=== PATIENT | female | born 1960 | race African-American/Black ===

== ENCOUNTER 2017-12-21 20:43 | Observation (INO) ==
[2017-12-21 23:41] LABS: Basophils % 0.3 % (0.0-0.8); Eosinophils # 0.1 10*3/uL (0.0-0.87); Eosinophils % 1.2 % (0.00-10.9); Hematocrit 35.2 VOL% (35.7-47.0); Hemoglobin 11.5 GM/DL (12.0-16.0); Immature Granulocytes % 0.1 %; Immature Granulocytes Absolute 0.01 #; Lymphocytes # 2.8 10*3/uL (1.4-4.0); Lymphocytes % 38.1 % (21.3-54.2); Mean Corpuscular HGB Conc 32.7 GM/DL (32-36); Mean Corpuscular Hemoglobin 30 PG (27-34); Mean Corpuscular Volume 90.3 FL (87-102); Mean Platelet Volume 11.3 FL (9.6-12.0); Monocytes # 0.5 10*3/uL (0.11-0.8); Monocytes % 6.8 % (1.7-12.7); Neutrophils # 3.9 10*3/uL (1.4-7.4); Neutrophils % 53.5 % (38.7-73.9); Platelet Count 211 T/CUMM (130-400); Red Cell Distribution Width 13.6 % (9.3-17.3); White Blood Count 7.2 T/CUMM (4-12)
[2017-12-21 23:56] LABS: PT Patient Result 10.5 SECS; Partial Thromboplastin Time 27.8 SECS (0-40)
[2017-12-22 00:03] LABS: Alanine Aminotransferase 22 U/L (13-56); Albumin 3.6 G/DL (3.4-5.0); Alkaline Phosphatase 84 U/L (45-117); Aspartate Amino Transferase 33 U/L (0-37); Blood Urea Nitrogen 15 MG/DL (7-18); Calcium 9.6 MG/DL (8.5-10.1); Glucose 120 MG/DL (74-106); Potassium 4.9 MMOL/L (3.5-5.1); Sodium 136 MMOL/L (136-145); Troponin I Only < 0.015 NG/ML (0.00-0.045)
[2017-12-22 00:03] LABS: Apearance,Urine CLOUDY (Clear); Bacteria,Urine Many /HPF (Few); Bilirubin,Urine Negative (Negative); Blood, Urine Large mg/dL (Negative); Glucose,Urine (UA) Negative (Negative); Ketones,Urine Negative (Negative); Nitrite,Urine Negative (Negative); Protein,Urine 100 MG/DL; RBC,Urine 2210 /HPF (0-4); Urine Color Red (Yellow); Urine Specific Gravity 1.014 (1.001-1.035); Urine Urobilinogen < 2.0 EU/DL (0.2-1.0); WBC,Urine 286 /HPF (0-6)
[2017-12-22] MEDS ORDERED: CIPROFLOXACIN INJ 400 MG in PREMIX 1 EACH IV STA (03:26)
[2017-12-22] MEDS ORDERED: MAGNESIUM SULF RIDER 2 GM in PREMIX 1 EACH IV PRN (03:26)
[2017-12-22] MEDS ORDERED: MAGNESIUM SULF RIDER 4 GM in PREMIX 1 EACH IV PRN (03:26)
[2017-12-22 05:56] LABS: Troponin I Only < 0.015 NG/ML (0.00-0.045)
[2017-12-22 08:15] LABS: Troponin I Only < 0.015 NG/ML (0.00-0.045)
[2017-12-22] MEDS ORDERED: DEXTROSE 50% 25 GM/50 ML VIAL IV PRN (08:53)
[2017-12-22] MEDS ORDERED: GLUCAGON 1 MG VIAL IM PRN (08:53)
[2017-12-22] MEDS ORDERED: CARVEDILOL 25 MG TABLET PO SCH (09:00)
[2017-12-22] MEDS ORDERED: CARVEDILOL 12.5 MG TABLET PO SCH (09:00)
[2017-12-22] MEDS ORDERED: FUROSEMIDE 20 MG TABLET PO SCH (09:00)
[2017-12-22] MEDS ORDERED: SOTALOL 80 MG TABLET PO ONE (10:32)
[2017-12-22] MEDS: PANTOPRAZOLE 40 MG TABLET PO SCH (10:34)
[2017-12-22] MEDS: DILTIAZEM CD 120 MG CAPSULE PO SCH (10:34)
[2017-12-22] MEDS: SPIRONOLACTONE 25 MG TABLET PO SCH (10:34)
[2017-12-22] MEDS: ASPIRIN EC 81 MG TABLET PO SCH (10:34)
[2017-12-22] MEDS: MAGNESIUM OXIDE 400 MG TABLET PO SCH ×2 (10:35→21:03)
[2017-12-22] MEDS: ENALAPRIL 10 MG TABLET PO SCH ×2 (10:35→21:03)
[2017-12-22 10:44] LABS: Calcium 9.2 MG/DL (8.5-10.1); Osmolality,Calculated 277.7 MOS/KG (273-304); Potassium 4.3 MMOL/L (3.5-5.1)
[2017-12-22 10:50] LABS: Troponin I Only < 0.015 NG/ML (0.00-0.045)
[2017-12-22] MEDS: INSULIN REGULAR 100 UNIT/ML SUBCUT SCH ×3 (14:12→21:14)
[2017-12-22] MEDS ORDERED: diphenhydrAMINE CAP 25 MG CAPSULE PO PRN (18:06)
[2017-12-22] MEDS ORDERED: MAGNESIUM HYDROXIDE SUSP 30 ML UDCUP PO PRN (18:06)
[2017-12-22] MEDS ORDERED: ONDANSETRON 4 MG/2 ML VIAL IV PRN (18:06)
[2017-12-22] MEDS: SOTALOL 80 MG TABLET PO SCH (21:03)
[2017-12-23 06:19] LABS: Calcium 8.9 MG/DL (8.5-10.1); Osmolality,Calculated 281.5 MOS/KG (273-304); Potassium 4.4 MMOL/L (3.5-5.1)
[2017-12-23] MEDS: DILTIAZEM CD 120 MG CAPSULE PO SCH (08:16)
[2017-12-23] MEDS: INSULIN REGULAR 100 UNIT/ML SUBCUT SCH ×2 (08:16→11:50)
[2017-12-23] MEDS: SPIRONOLACTONE 25 MG TABLET PO SCH (08:17)
[2017-12-23] MEDS: PANTOPRAZOLE 40 MG TABLET PO SCH (08:17)
[2017-12-23] MEDS: SOTALOL 80 MG TABLET PO SCH (08:17)
[2017-12-23] MEDS: ASPIRIN EC 81 MG TABLET PO SCH (08:17)
[2017-12-23] MEDS: ENALAPRIL 10 MG TABLET PO SCH (08:17)
[2017-12-23] MEDS: MAGNESIUM OXIDE 400 MG TABLET PO SCH (08:17)
[2017-12-23] MEDS ORDERED: SOTALOL 80 MG TABLET PO SCH ×3 (10:50→21:00)
[2017-12-23 11:58] VITALS: BP 96/53
[2017-12-23] MEDS ORDERED: FUROSEMIDE 20 MG/2 ML VIAL IV ONE (13:47)
[2017-12-23] MEDS ORDERED: INSULIN LISPRO 100 UNIT/ML SUBCUT SCH (15:00)
[2017-12-23] MEDS ORDERED: sitaGLIPtin 25 MG TABLET PO SCH (21:00)
[2017-12-23] MEDS ORDERED: INSULIN GLARGINE 100 UNIT/ML SUBCUT SCH ×2 (21:00)
[2017-12-23] MEDS ORDERED: metFORMIN 500 MG TABLET PO SCH (21:00)
[2017-12-24] MEDS ORDERED: PANTOPRAZOLE 40 MG TABLET PO SCH (09:00)
== END 2017-12-23 15:12 | disposition home or self-care (01) ==
LOC: N.EDINP 20:43 → N.ED 20:43 → N.TELES 12-22 03:03
PROVIDERS: ADMIT Internal Medicine Cardiovascular Disease; ATTEND Internal Medicine Cardiovascular Disease

== ENCOUNTER 2019-10-30 12:37 | Inpatient (IN) ==
[2019-10-30 13:32] LABS: Basophils % 0.6 % (0.0-0.8); Hemoglobin 9.9 GM/DL (12.0-16.0); Platelet Count 246 T/CUMM (130-400); Red Cell Distribution Width 17.2 % (9.3-17.3)
[2019-10-30 13:51] LABS: Eosinophils # 0.1 10*3/uL (0.0-0.87); Eosinophils % 2.3 % (0.00-10.9); Hematocrit 33.6 VOL% (35.7-47.0); Immature Granulocytes % 0.4 %; Immature Granulocytes Absolute 0.02 #; Lymphocytes # 1.5 10*3/uL (1.4-4.0); Lymphocytes % 31.9 % (21.3-54.2); Mean Corpuscular HGB Conc 29.5 GM/DL (32-36); Mean Corpuscular Volume 82.6 FL (87-102); Mean Platelet Volume 10.6 FL (9.6-12.0); Monocytes % 8.8 % (1.7-12.7); Red Blood Count 4.07 MC/CUMM (3.8-5.5); White Blood Count 4.8 T/CUMM (4-12)
[2019-10-30 13:52] LABS: Albumin 3.3 G/DL (3.4-5.0); Bilirubin,Total 0.5 MG/DL (0.2-1.0); Calcium 9.4 MG/DL (8.5-10.1); Total Protein 8.4 G/DL (6.4-8.3)
[2019-10-30 14:12] LABS: Apearance,Urine CLEAR (Clear); Bacteria,Urine Moderate /HPF (Few); Bilirubin,Urine Negative (Negative); Blood, Urine Negative (Negative); Glucose,Urine (UA) Negative (Negative); Ketones,Urine Negative (Negative); Nitrite,Urine Negative (Negative); Protein,Urine 30 MG/DL; RBC,Urine 1 /HPF (0-4); Squamous Epithelial Cell,Urine Occasional /HPF (0-10); Urine Color Yellow (Yellow); Urine Specific Gravity 1.015 (1.001-1.035); WBC,Urine 13 /HPF (0-6)
[2019-10-30] MEDS ORDERED: hydrALAZINE 20 MG/1 ML VIAL IV PRN (16:24)
[2019-10-30] MEDS ORDERED: BISACODYL 5 MG TABLET PO PRN (16:24)
[2019-10-30] MEDS ORDERED: LACTULOSE 20 GM/30 ML UDCUP PO PRN (16:24)
[2019-10-30] MEDS ORDERED: MORPHINE 4 MG/1 ML VIAL IV PRN (16:24)
[2019-10-30] MEDS ORDERED: ONDANSETRON 4 MG/2 ML VIAL IV PRN (16:24)
[2019-10-30] MEDS ORDERED: GLUCAGON 1 MG VIAL IM PRN (16:24)
[2019-10-30] MEDS ORDERED: DEXTROSE 50% 25 GM/50 ML VIAL IV PRN (16:24)
[2019-10-30] MEDS ORDERED: DOCUSATE SODIUM 100 MG CAPSULE PO PRN (16:24)
[2019-10-30] MEDS ORDERED: ACETAMINOPHEN 325 MG TABLET PO PRN (16:24)
[2019-10-30] MEDS ORDERED: MAGNESIUM SULF RIDER 4 GM in PREMIX 1 EACH IV PRN (16:47)
[2019-10-30] MEDS ORDERED: MAGNESIUM SULF RIDER 2 GM in PREMIX 1 EACH IV PRN (16:47)
[2019-10-30 16:49] LABS: INR 1.1; PT Patient Result 11.4 SECS (9.6-12.2); Partial Thromboplastin Time 26.9 SECS (20.8-36.0)
[2019-10-30] MEDS: INSULIN LISPRO 100 UNIT/ML SUBCUT SCH ×2 (18:57→22:27)
[2019-10-30] MEDS: SODIUM CHLORIDE 0.9% 1,000 ML IV SCH (19:03)
[2019-10-30] MEDS ORDERED: INFLUENZA VIRUS VACCINE 0.5 ML SYRINGE IM ONE (19:20)
[2019-10-30] MEDS: cefTRIAXone 1,000 MG in SYRINGE 1 EACH IV SCH (19:52)
[2019-10-30] MEDS ORDERED: MAGNESIUM OXIDE 400 MG TABLET PO SCH (21:00)
[2019-10-30] MEDS: ATORVASTATIN 20 MG TABLET PO SCH (22:27)
[2019-10-30] MEDS: MONTELUKAST 10 MG TABLET PO SCH (22:27)
[2019-10-30] MEDS: SOTALOL 80 MG TABLET PO SCH (22:27)
[2019-10-30] MEDS: INSULIN GLARGINE 100 UNIT/ML SUBCUT SCH (22:28)
[2019-10-31] MEDS: SODIUM CHLORIDE 0.9% 1,000 ML IV SCH ×2 (05:15→18:43)
[2019-10-31 05:24] LABS: Basophils % 0.2 % (0.0-0.8); Eosinophils # 0.1 10*3/uL (0.0-0.87); Hematocrit 32.3 VOL% (35.7-47.0); Hemoglobin 9.6 GM/DL (12.0-16.0); Immature Granulocytes % 0.2 %; Immature Granulocytes Absolute 0.01 #; Lymphocytes # 2.1 10*3/uL (1.4-4.0); Lymphocytes % 42.1 % (21.3-54.2); Mean Corpuscular HGB Conc 29.7 GM/DL (32-36); Mean Corpuscular Volume 82.4 FL (87-102); Mean Platelet Volume 10.8 FL (9.6-12.0); Monocytes % 11.9 % (1.7-12.7); Neutrophils % 43.6 % (38.7-73.9); Platelet Count 226 T/CUMM (130-400); Red Blood Count 3.92 MC/CUMM (3.8-5.5); Red Cell Distribution Width 17.2 % (9.3-17.3)
[2019-10-31 05:49] LABS: Osmolality,Calculated 276.7 MOS/KG (273-304)
[2019-10-31 06:12] LABS: Hypochromasia 1+; Platelet Estimate Adequate
[2019-10-31] MEDS: INSULIN LISPRO 100 UNIT/ML SUBCUT SCH ×4 (10:25→21:04)
[2019-10-31] MEDS: MONTELUKAST 10 MG TABLET PO SCH (10:26)
[2019-10-31] MEDS: POTASSIUM CHLORIDE 8 MEQ CAPSULE PO SCH (10:26)
[2019-10-31] MEDS: ASPIRIN EC 81 MG TABLET PO SCH (10:26)
[2019-10-31] MEDS: SOTALOL 80 MG TABLET PO SCH ×2 (10:26→21:04)
[2019-10-31] MEDS: PANTOPRAZOLE 40 MG TABLET PO SCH (10:27)
[2019-10-31] MEDS: cefTRIAXone 1,000 MG in SYRINGE 1 EACH IV SCH (18:40)
[2019-10-31] MEDS: ATORVASTATIN 20 MG TABLET PO SCH (21:04)
[2019-10-31] MEDS: INSULIN GLARGINE 100 UNIT/ML SUBCUT SCH (21:04)
[2019-11-01] MEDS: SODIUM CHLORIDE 0.9% 1,000 ML IV SCH ×2 (04:30→14:31)
[2019-11-01] MEDS: INSULIN LISPRO 100 UNIT/ML SUBCUT SCH ×2 (08:26→13:30)
[2019-11-01] MEDS: PANTOPRAZOLE 40 MG TABLET PO SCH (09:59)
[2019-11-01] MEDS: ASPIRIN EC 81 MG TABLET PO SCH (09:59)
[2019-11-01] MEDS: MONTELUKAST 10 MG TABLET PO SCH (09:59)
[2019-11-01] MEDS: POTASSIUM CHLORIDE 8 MEQ CAPSULE PO SCH (09:59)
[2019-11-01] MEDS: SOTALOL 80 MG TABLET PO SCH (09:59)
[2019-11-01 13:50] VITALS: BP 113/78
== END 2019-11-01 15:19 | disposition home or self-care (01) | DRG 392 ==
LOC: N.ED 12:37 → N.EDINP 16:24 → SUATTDRO 16:24 → N.5E 17:27
PROVIDERS: ADMIT Family Medicine; ATTEND Emergency Medicine

== ENCOUNTER 2021-11-06 19:10 | Inpatient (IN) ==
[2021-11-06 19:50] LABS: Basophils % 0.2 % (0.0-0.8); Eosinophils % 0.4 % (0.00-10.9); Hematocrit 34.3 VOL% (35.7-47.0); Hemoglobin 10.8 GM/DL (12.0-16.0); Immature Granulocytes % 8.3 %; Immature Granulocytes Absolute 0.69 #; Mean Corpuscular HGB Conc 31.5 GM/DL (32-36); Mean Corpuscular Volume 98.6 FL (87-102); Mean Platelet Volume 10.7 FL (9.6-12.0); Monocytes # 0.6 10*3/uL (0.11-0.8); Monocytes % 6.8 % (1.7-12.7); Neutrophils % 72.3 % (38.7-73.9); Platelet Count 162 T/CUMM (130-400); Red Blood Count 3.48 MC/CUMM (3.8-5.5); White Blood Count 8.3 T/CUMM (4-12)
[2021-11-06 20:22] LABS: Albumin 3.4 G/DL (3.4-5.0); Bilirubin,Total 0.4 MG/DL (0.20-1.00); Osmolality,Calculated 280.8 MOS/KG (273-304); Potassium 5.2 MMOL/L (3.5-5.1); Total Protein 7.9 G/DL (6.4-8.2)
[2021-11-06 20:29] LABS: Band Neutrophils 2 % (0-10); Lymphocytes 12 % (20-55); Platelet Estimate Adequate; Total Cells Counted 100
[2021-11-06] MEDS ORDERED: ONDANSETRON 4 MG/2 ML VIAL IV STA (20:34)
[2021-11-06] MEDS ORDERED: fentaNYL 100 MCG/2 ML VIAL IV STA (20:34)
[2021-11-07] MEDS ORDERED: GLUCAGON 1 MG VIAL IM PRN (00:01)
[2021-11-07] MEDS ORDERED: hydrALAZINE 20 MG/1 ML VIAL IV PRN (00:01)
[2021-11-07] MEDS ORDERED: DEXTROSE 10% 250 ML BAG IV PRN (00:01)
[2021-11-07] MEDS ORDERED: ACETAMINOPHEN 325 MG TABLET PO PRN (00:01)
[2021-11-07] MEDS: MORPHINE 4 MG/1 ML VIAL IV PRN ×4 (00:55→22:48)
[2021-11-07] MEDS: PANTOPRAZOLE 40 MG VIAL IV SCH ×2 (00:55→09:29)
[2021-11-07 04:26] LABS: Albumin 2.9 G/DL (3.4-5.0); Bilirubin,Total 0.6 MG/DL (0.20-1.00); Calcium 8.9 MG/DL (8.5-10.1); Potassium 5.1 MMOL/L (3.5-5.1); Risk Ratio 2.3; Thyroid Stimulating Hormone 0.543 uIU/ml (0.358-3.74); Total Protein 7.8 G/DL (6.4-8.2); VLDL Cholesterol 10.6 MG/DL
[2021-11-07 08:21] LABS: Hemoglobin 11.2 GM/DL (12.0-16.0)
[2021-11-07 08:59] LABS: % Iron Saturation 7.5 % (18-50)
[2021-11-07] MEDS ORDERED: PANTOPRAZOLE 40 MG TABLET PO SCH (09:00)
[2021-11-07] MEDS ORDERED: APIXABAN 5 MG TABLET PO SCH (09:00)
[2021-11-07 09:02] LABS: Folate 12.34 NG/ML (5.38-24.0)
[2021-11-07] MEDS: ASPIRIN EC 81 MG TABLET PO SCH (09:33)
[2021-11-07] MEDS: INSULIN LISPRO 100 UNIT/ML SUBCUT SCH ×4 (10:01→22:01)
[2021-11-07] MEDS: SOTALOL 80 MG TABLET PO SCH ×2 (13:59→22:02)
[2021-11-07] MEDS ORDERED: ENOXAPARIN 40 MG/0.4 ML SYRINGE SUBCUT SCH ×2 (16:00→21:00)
[2021-11-07] MEDS: CHOLECALCIFEROL 5,000 UNIT TABLET PO SCH (17:56)
[2021-11-08] MEDS ORDERED: cefTRIAXone 1,000 MG in SODIUM CHLORIDE 0.9% 100 ML IV SCH (08:00)
[2021-11-08 08:34] LABS: Basophils % 0.3 % (0.0-0.8); Hematocrit 39.6 VOL% (35.7-47.0); Hemoglobin 12.7 GM/DL (12.0-16.0); Immature Granulocytes % 9.1 %; Immature Granulocytes Absolute 0.59 #; Lymphocytes # 0.6 10*3/uL (1.4-4.0); Lymphocytes % 9.5 % (21.3-54.2); Mean Corpuscular HGB Conc 32.1 GM/DL (32-36); Mean Corpuscular Volume 97.1 FL (87-102); Mean Platelet Volume 10.5 FL (9.6-12.0); Monocytes # 0.8 10*3/uL (0.11-0.8); Monocytes % 12.9 % (1.7-12.7); Neutrophils % 68.2 % (38.7-73.9); Platelet Count 158 T/CUMM (130-400); Red Blood Count 4.08 MC/CUMM (3.8-5.5); White Blood Count 6.5 T/CUMM (4-12)
[2021-11-08 08:55] LABS: Albumin 2.5 G/DL (3.4-5.0); Band Neutrophils 7 % (0-10); Bilirubin,Total 1.8 MG/DL (0.20-1.00); Calcium 9.6 MG/DL (8.5-10.1); Hypochromia Slight; Lymphocytes 12 % (20-55); Microcytosis Slight; Nucleated Red Blood Cells 1 (0-5); Osmolality,Calculated 280.5 MOS/KG (273-304); Platelet Estimate Adequate; Potassium 5.5 MMOL/L (3.5-5.1); Total Cells Counted 100
[2021-11-08] MEDS ORDERED: HYDROmorphone 1 MG/1 ML SYRINGE IV PRN (09:36)
[2021-11-08] MEDS: ASPIRIN EC 81 MG TABLET PO SCH (09:49)
[2021-11-08] MEDS: CHOLECALCIFEROL 5,000 UNIT TABLET PO SCH (09:50)
[2021-11-08] MEDS: INSULIN LISPRO 100 UNIT/ML SUBCUT SCH ×4 (09:50→21:15)
[2021-11-08] MEDS: SOTALOL 80 MG TABLET PO SCH ×2 (09:50→21:15)
[2021-11-08] MEDS: SODIUM CHLORIDE 0.9% 1,000 ML IV SCH ×2 (09:54→17:55)
[2021-11-08] MEDS ORDERED: SODIUM POLYSTYRENE SULFATE 15 GM/60 ML BOTTLE PO STA (10:35)
[2021-11-08] MEDS: PANTOPRAZOLE 40 MG VIAL IV SCH (10:49)
[2021-11-08] MEDS ORDERED: SODIUM CHLORIDE 0.9% 500 ML IV ONE (10:52)
[2021-11-08] MEDS: INSULIN GLARGINE 100 UNIT/ML SUBCUT SCH (13:04)
[2021-11-08] MEDS: HYDROmorphone 1 MG/1 ML SYRINGE IV PRN (13:05)
[2021-11-08 16:07] LABS: Calcium 8.5 MG/DL (8.5-10.1); Osmolality,Calculated 285.4 MOS/KG (273-304); Potassium 5.6 MMOL/L (3.5-5.1)
[2021-11-09] MEDS: SODIUM CHLORIDE 0.9% 1,000 ML IV SCH ×4 (00:02→20:33)
[2021-11-09] MEDS ORDERED: fentaNYL 100 MCG/2 ML VIAL ONE (06:54)
[2021-11-09] MEDS ORDERED: GLYCOPYRROLATE 0.4 MG/2 ML VIAL ONE (06:55)
[2021-11-09] MEDS ORDERED: propofoL 200 MG/20 ML VIAL IV ONE (06:55)
[2021-11-09] MEDS ORDERED: ONDANSETRON 4 MG/2 ML VIAL ONE (06:55)
[2021-11-09] MEDS ORDERED: SUCCINYLCHOLINE 200 MG/10 ML VIAL ONE (06:55)
[2021-11-09] MEDS ORDERED: DEXAMETHASONE 4 MG/1 ML VIAL ONE ×2 (06:55)
[2021-11-09] MEDS ORDERED: LIDOCAINE 2% 5 ML VIAL ONE (06:55)
[2021-11-09] MEDS ORDERED: ROCURONIUM 50 MG/5 ML VIAL IV ONE ×4 (06:55→09:43)
[2021-11-09] MEDS ORDERED: ETOMIDATE 40 MG/20 ML VIAL IV ONE (07:08)
[2021-11-09 07:45] LABS: Basophils % 0.2 % (0.0-0.8); Hematocrit 31.1 VOL% (35.7-47.0); Immature Granulocytes % 4.6 %; Immature Granulocytes Absolute 0.39 #; Lymphocytes # 0.6 10*3/uL (1.4-4.0); Mean Corpuscular HGB Conc 31.8 GM/DL (32-36); Mean Platelet Volume 11.4 FL (9.6-12.0); Monocytes # 0.7 10*3/uL (0.11-0.8); Monocytes % 8.7 % (1.7-12.7); Neutrophils % 79.5 % (38.7-73.9); Platelet Count 127 T/CUMM (130-400); Red Cell Distribution Width 14.9 % (9.3-17.3)
[2021-11-09 07:50] LABS: Bilirubin,Total 1.2 MG/DL (0.20-1.00); Calcium 8.1 MG/DL (8.5-10.1); Potassium 4.4 MMOL/L (3.5-5.1); Total Protein 6.9 G/DL (6.4-8.2)
[2021-11-09] MEDS ORDERED: ceFAZolin 1,000 MG VIAL ONE (07:57)
[2021-11-09 07:59] LABS: Hemoglobin 9.9 GM/DL (12.0-16.0); Red Blood Count 3.11 MC/CUMM (3.8-5.5); White Blood Count 8.5 T/CUMM (4-12)
[2021-11-09] MEDS ORDERED: cefTRIAXone 2,000 MG in SODIUM CHLORIDE 0.9% 100 ML IV SCH (08:00)
[2021-11-09] MEDS ORDERED: PHENYLEPHRINE 10 MG/1 ML VIAL IV ONE (08:01)
[2021-11-09] MEDS ORDERED: SEVOFLURANE 1 UNIT/15 MINUTE INH ONE ×2 (08:03→09:43)
[2021-11-09] MEDS ORDERED: SODIUM CHLORIDE 0.9% 250 ML IV ONE (08:03)
[2021-11-09] MEDS ORDERED: LACTATED RINGERS 1,000 ML IV ONE ×3 (08:03→16:13)
[2021-11-09 08:49] LABS: Band Neutrophils 7 % (0-10); Hypochromia 1+; Lymphocytes 6 % (20-55); Total Cells Counted 100
[2021-11-09 08:49] LABS: Basophils % 0.2 % (0.0-0.8); Hematocrit 29.4 VOL% (35.7-47.0); Hemoglobin 9.3 GM/DL (12.0-16.0); Immature Granulocytes % 7.8 %; Immature Granulocytes Absolute 0.81 #; Lymphocytes # 0.8 10*3/uL (1.4-4.0); Lymphocytes % 7.4 % (21.3-54.2); Mean Corpuscular HGB Conc 31.6 GM/DL (32-36); Mean Platelet Volume 10.9 FL (9.6-12.0); Monocytes # 0.9 10*3/uL (0.11-0.8); Monocytes % 8.5 % (1.7-12.7); Neutrophils % 76.1 % (38.7-73.9); Platelet Count 155 T/CUMM (130-400); Red Blood Count 2.97 MC/CUMM (3.8-5.5); White Blood Count 10.4 T/CUMM (4-12)
[2021-11-09 08:50] LABS: Microcytosis Slight; Ovalocytes Slight; Platelet Estimate Adequate
[2021-11-09 09:35] LABS: Band Neutrophils 5 % (0-10); Hypochromia 1+; Lymphocytes 7 % (20-55); Microcytosis Slight; Total Cells Counted 100
[2021-11-09 09:36] LABS: Platelet Estimate Adequate; Polychromasia Slight
[2021-11-09] MEDS ORDERED: MIDAZOLAM 2 MG/2 ML VIAL ONE ×3 (09:44)
[2021-11-09] MEDS: INSULIN LISPRO 100 UNIT/ML SUBCUT SCH ×4 (10:41→22:00)
[2021-11-09 11:34] LABS: ABG Base Excess -5.1 MMOL/L (-2.5-2.5); ABG HCO3 20.2 MMOL/L (20-26); ABG Oxygen Saturation 99.9 % (95-100); ABG PCO2 42.6 MM HG (35-48); ABG PH 7.303 (7.35-7.45); Allen Test Positive; Pt O2 Delivery Device Ventilator
[2021-11-09] MEDS: ASPIRIN EC 81 MG TABLET PO SCH (12:33)
[2021-11-09] MEDS: SOTALOL 80 MG TABLET PO SCH ×2 (12:34→22:00)
[2021-11-09] MEDS: INSULIN GLARGINE 100 UNIT/ML SUBCUT SCH (12:34)
[2021-11-09] MEDS: CHOLECALCIFEROL 5,000 UNIT TABLET PO SCH (12:35)
[2021-11-09] MEDS: PANTOPRAZOLE 40 MG VIAL IV SCH (13:03)
[2021-11-09] MEDS: cefTRIAXone 2,000 MG in SODIUM CHLORIDE 0.9% 100 ML IV SCH (13:03)
[2021-11-09 13:05] LABS: Amorphous Crystals,Urine Occasional /HPF (Few); Bacteria,Urine Few /HPF (Few); Granular Casts,Urine 7 /LPF (0-1); Mucus,Urine Occasional /LPF (Occasional); RBC,Urine 219 /HPF (0-4); Squamous Epithelial Cell,Urine Occasional /HPF (0-10)
[2021-11-09 13:06] LABS: Bilirubin,Urine Large mg/dL (Negative); Blood, Urine Large mg/dL (Negative); Glucose,Urine (UA) 100 mg/dL (Negative); Ketones,Urine 15 mg/dL (Negative); Nitrite,Urine Negative (Negative); Protein,Urine >=300 mg/dL (Negative); Urine Appearance Slightly Cloudy (Clear); Urine Color Amber (Yellow); Urine Specific Gravity > 1.030 (1.001-1.035)
[2021-11-09 16:34] LABS: ABG Base Excess -5.7 MMOL/L (-2.5-2.5); ABG HCO3 19.7 MMOL/L (20-26); ABG PCO2 35.3 MM HG (35-48); ABG PH 7.345 (7.35-7.45); ABG TCO2 17.5 MMOL/L (23-27); Allen Test Positive; Pt O2 Delivery Device Ventilator
[2021-11-09] MEDS: HYDROmorphone 1 MG/1 ML SYRINGE IV PRN (17:54)
[2021-11-10 02:41] LABS: ABG Base Excess -2.3 MMOL/L (-2.5-2.5); ABG HCO3 22.4 MMOL/L (20-26); ABG Oxygen Saturation 97.3 % (95-100); ABG PCO2 38.3 MM HG (35-48); ABG PH 7.377 (7.35-7.45); ABG PO2 98.6 MM HG (80-95); ABG TCO2 20.3 MMOL/L (23-27)
[2021-11-10 03:31] LABS: Basophils % 0.1 % (0.0-0.8); Hematocrit 27.9 VOL% (35.7-47.0); Hemoglobin 8.8 GM/DL (12.0-16.0); Immature Granulocytes % 7.4 %; Immature Granulocytes Absolute 0.67 #; Lymphocytes # 0.4 10*3/uL (1.4-4.0); Lymphocytes % 4.7 % (21.3-54.2); Mean Corpuscular HGB Conc 31.5 GM/DL (32-36); Mean Corpuscular Volume 98.2 FL (87-102); Mean Platelet Volume 11.1 FL (9.6-12.0); Monocytes # 0.9 10*3/uL (0.11-0.8); Neutrophils % 77.8 % (38.7-73.9); Platelet Count 122 T/CUMM (130-400); Red Blood Count 2.84 MC/CUMM (3.8-5.5); Red Cell Distribution Width 14.9 % (9.3-17.3); White Blood Count 9.1 T/CUMM (4-12)
[2021-11-10] MEDS: SODIUM CHLORIDE 0.9% 1,000 ML IV SCH ×3 (03:41→17:31)
[2021-11-10 03:56] LABS: Calcium 7.5 MG/DL (8.5-10.1); Osmolality,Calculated 293.8 MOS/KG (273-304)
[2021-11-10 04:03] LABS: Band Neutrophils 2 % (0-10); Hypochromia Slight; Lymphocytes 8 % (20-55); Total Cells Counted 100
[2021-11-10 04:04] LABS: Microcytosis Slight; Ovalocytes Slight
[2021-11-10] MEDS: cefTRIAXone 2,000 MG in SODIUM CHLORIDE 0.9% 100 ML IV SCH (09:20)
[2021-11-10] MEDS: CHOLECALCIFEROL 5,000 UNIT TABLET PO SCH ×2 (09:23→09:24)
[2021-11-10] MEDS: ASPIRIN EC 81 MG TABLET PO SCH (09:23)
[2021-11-10] MEDS: SOTALOL 80 MG TABLET PO SCH ×2 (09:23→21:05)
[2021-11-10] MEDS: INSULIN LISPRO 100 UNIT/ML SUBCUT SCH ×4 (09:26→20:58)
[2021-11-10] MEDS: PANTOPRAZOLE 40 MG VIAL IV SCH (09:26)
[2021-11-10] MEDS: INSULIN GLARGINE 100 UNIT/ML SUBCUT SCH (09:27)
[2021-11-10] MEDS: HYDROmorphone 1 MG/1 ML SYRINGE IV PRN (17:05)
[2021-11-11] MEDS: SODIUM CHLORIDE 0.9% 1,000 ML IV SCH ×4 (00:30→14:15)
[2021-11-11] MEDS: ONDANSETRON 4 MG/2 ML VIAL IV PRN (00:33)
[2021-11-11] MEDS: HYDROmorphone 1 MG/1 ML SYRINGE IV PRN ×3 (00:34→21:20)
[2021-11-11 03:24] LABS: Basophils % 0.1 % (0.0-0.8); Eosinophils % 0.1 % (0.00-10.9); Hematocrit 25.4 VOL% (35.7-47.0); Immature Granulocytes % 5.7 %; Immature Granulocytes Absolute 0.42 #; Lymphocytes # 0.6 10*3/uL (1.4-4.0); Lymphocytes % 7.4 % (21.3-54.2); Mean Corpuscular HGB Conc 31.5 GM/DL (32-36); Mean Corpuscular Volume 97.3 FL (87-102); Mean Platelet Volume 10.6 FL (9.6-12.0); Monocytes # 0.6 10*3/uL (0.11-0.8); Monocytes % 7.7 % (1.7-12.7); NRBC # 0.03 10*3/uL; Platelet Count 118 T/CUMM (130-400); Red Blood Count 2.61 MC/CUMM (3.8-5.5); Red Cell Distribution Width 15.3 % (9.3-17.3); White Blood Count 7.4 T/CUMM (4-12)
[2021-11-11 03:35] LABS: Calcium 7.3 MG/DL (8.5-10.1); Osmolality,Calculated 295.1 MOS/KG (273-304); Potassium 4.5 MMOL/L (3.5-5.1)
[2021-11-11 03:53] LABS: Band Neutrophils 2 % (0-10); Hypochromia 1+; Lymphocytes 6 % (20-55); Macrocytosis Slight; Nucleated Red Blood Cells 1 (0-5); Total Cells Counted 100
[2021-11-11 03:54] LABS: Platelet Estimate Adequate
[2021-11-11] MEDS: CHOLECALCIFEROL 5,000 UNIT TABLET PO SCH (08:58)
[2021-11-11] MEDS: SOTALOL 80 MG TABLET PO SCH ×2 (08:58→21:20)
[2021-11-11] MEDS: ASPIRIN EC 81 MG TABLET PO SCH (08:58)
[2021-11-11] MEDS: INSULIN LISPRO 100 UNIT/ML SUBCUT SCH ×4 (08:59→21:29)
[2021-11-11] MEDS: INSULIN GLARGINE 100 UNIT/ML SUBCUT SCH (08:59)
[2021-11-11] MEDS: cefTRIAXone 2,000 MG in SODIUM CHLORIDE 0.9% 100 ML IV SCH (09:06)
[2021-11-11] MEDS: PANTOPRAZOLE 40 MG VIAL IV SCH (09:06)
[2021-11-12] MEDS: SODIUM CHLORIDE 0.9% 1,000 ML IV SCH ×5 (01:29→20:01)
[2021-11-12] MEDS: HYDROmorphone 1 MG/1 ML SYRINGE IV PRN ×3 (03:35→19:31)
[2021-11-12 04:28] LABS: Basophils % 0.3 % (0.0-0.8); Eosinophils % 0.3 % (0.00-10.9); Hematocrit 27.1 VOL% (35.7-47.0); Hemoglobin 8.1 GM/DL (12.0-16.0); Immature Granulocytes % 4.9 %; Immature Granulocytes Absolute 0.28 #; Lymphocytes # 0.6 10*3/uL (1.4-4.0); Lymphocytes % 11.1 % (21.3-54.2); Mean Corpuscular HGB Conc 29.9 GM/DL (32-36); Mean Corpuscular Volume 101.1 FL (87-102); Mean Platelet Volume 11.6 FL (9.6-12.0); Monocytes # 0.7 10*3/uL (0.11-0.8); Monocytes % 12.2 % (1.7-12.7); NRBC # 0.04 10*3/uL; Neutrophils % 71.2 % (38.7-73.9); Platelet Count 142 T/CUMM (130-400); Red Blood Count 2.68 MC/CUMM (3.8-5.5); Red Cell Distribution Width 15.7 % (9.3-17.3); White Blood Count 5.7 T/CUMM (4-12)
[2021-11-12 04:54] LABS: Albumin 1.4 G/DL (3.4-5.0); Bilirubin,Total 0.5 MG/DL (0.20-1.00); Calcium 7.2 MG/DL (8.5-10.1); Total Protein 6.5 G/DL (6.4-8.2)
[2021-11-12] MEDS ORDERED: FUROSEMIDE 40 MG/4 ML VIAL IV ONE (09:28)
[2021-11-12] MEDS: cefTRIAXone 2,000 MG in SODIUM CHLORIDE 0.9% 100 ML IV SCH (09:51)
[2021-11-12] MEDS: PANTOPRAZOLE 40 MG VIAL IV SCH (09:52)
[2021-11-12] MEDS: INSULIN LISPRO 100 UNIT/ML SUBCUT SCH ×4 (09:52→20:55)
[2021-11-12] MEDS: INSULIN GLARGINE 100 UNIT/ML SUBCUT SCH (09:52)
[2021-11-12] MEDS: ASPIRIN EC 81 MG TABLET PO SCH (09:53)
[2021-11-12] MEDS: CHOLECALCIFEROL 5,000 UNIT TABLET PO SCH (09:53)
[2021-11-12] MEDS: SOTALOL 80 MG TABLET PO SCH ×2 (09:53→20:56)
[2021-11-13] MEDS: HYDROmorphone 1 MG/1 ML SYRINGE IV PRN ×4 (02:30→17:07)
[2021-11-13] MEDS: SODIUM CHLORIDE 0.9% 1,000 ML IV SCH ×3 (02:39→17:10)
[2021-11-13 04:03] LABS: Basophils % 0.2 % (0.0-0.8); Eosinophils % 0.2 % (0.00-10.9); Hematocrit 25.9 VOL% (35.7-47.0); Hemoglobin 8.2 GM/DL (12.0-16.0); Immature Granulocytes % 7.8 %; Immature Granulocytes Absolute 0.63 #; Lymphocytes % 12.2 % (21.3-54.2); Mean Corpuscular HGB Conc 31.7 GM/DL (32-36); Mean Corpuscular Volume 97.7 FL (87-102); Mean Platelet Volume 10.2 FL (9.6-12.0); Monocytes # 1.1 10*3/uL (0.11-0.8); NRBC # 0.07 10*3/uL; Neutrophils % 65.6 % (38.7-73.9); Platelet Count 150 T/CUMM (130-400); Red Blood Count 2.65 MC/CUMM (3.8-5.5); Red Cell Distribution Width 15.6 % (9.3-17.3); White Blood Count 8.1 T/CUMM (4-12)
[2021-11-13 04:27] LABS: Albumin 1.5 G/DL (3.4-5.0); Bilirubin,Total 0.5 MG/DL (0.20-1.00); Potassium 4.2 MMOL/L (3.5-5.1); Total Protein 6.7 G/DL (6.4-8.2)
[2021-11-13 04:28] LABS: Band Neutrophils 1 % (0-10); Hypochromia 1+; Lymphocytes 11 % (20-55); Microcytosis 1+; Nucleated Red Blood Cells 1 (0-5); Platelet Estimate Adequate; Total Cells Counted 100
[2021-11-13] MEDS: INSULIN LISPRO 100 UNIT/ML SUBCUT SCH ×4 (08:19→22:30)
[2021-11-13] MEDS: PANTOPRAZOLE 40 MG VIAL IV SCH (09:48)
[2021-11-13] MEDS: INSULIN GLARGINE 100 UNIT/ML SUBCUT SCH (09:49)
[2021-11-13] MEDS: cefTRIAXone 2,000 MG in SODIUM CHLORIDE 0.9% 100 ML IV SCH (09:49)
[2021-11-13] MEDS: CHOLECALCIFEROL 5,000 UNIT TABLET PO SCH (09:50)
[2021-11-13] MEDS: ASPIRIN EC 81 MG TABLET PO SCH (09:50)
[2021-11-13] MEDS: SOTALOL 80 MG TABLET PO SCH ×2 (09:50→22:26)
[2021-11-13 11:54] LABS: % Iron Saturation 11.6 % (18-50); Ferritin 339.4 ng/mL (8-252)
[2021-11-13 12:07] LABS: Folate 8.72 NG/ML (5.38-24.0)
[2021-11-14] MEDS: HYDROmorphone 1 MG/1 ML SYRINGE IV PRN ×3 (03:20→18:35)
[2021-11-14] MEDS: ONDANSETRON 4 MG/2 ML VIAL IV PRN (03:20)
[2021-11-14 05:29] LABS: Basophils % 0.2 % (0.0-0.8); Eosinophils % 0.3 % (0.00-10.9); Hematocrit 25.9 VOL% (35.7-47.0); Immature Granulocytes % 8.1 %; Immature Granulocytes Absolute 0.72 #; Lymphocytes # 0.9 10*3/uL (1.4-4.0); Mean Corpuscular HGB Conc 30.9 GM/DL (32-36); Mean Corpuscular Volume 98.9 FL (87-102); Monocytes # 1.2 10*3/uL (0.11-0.8); Monocytes % 13.5 % (1.7-12.7); NRBC # 0.06 10*3/uL; Neutrophils % 67.9 % (38.7-73.9); Platelet Count 153 T/CUMM (130-400); Red Blood Count 2.62 MC/CUMM (3.8-5.5); Red Cell Distribution Width 15.9 % (9.3-17.3); White Blood Count 8.9 T/CUMM (4-12)
[2021-11-14 05:52] LABS: Lymphocytes 8 % (20-55); Nucleated Red Blood Cells 1 (0-5); Total Cells Counted 100
[2021-11-14 05:53] LABS: Hypochromia 1+; Microcytosis 1+; Platelet Estimate Adequate
[2021-11-14 06:00] LABS: Albumin 1.4 G/DL (3.4-5.0); Bilirubin,Total 0.6 MG/DL (0.20-1.00); Calcium 8.4 MG/DL (8.5-10.1); Potassium 4.4 MMOL/L (3.5-5.1); Total Protein 6.6 G/DL (6.4-8.2)
[2021-11-14] MEDS: ASPIRIN EC 81 MG TABLET PO SCH (08:55)
[2021-11-14] MEDS: FERROUS SULFATE 325 MG TABLET PO SCH (08:55)
[2021-11-14] MEDS: INSULIN LISPRO 100 UNIT/ML SUBCUT SCH ×4 (08:56→21:35)
[2021-11-14] MEDS: INSULIN GLARGINE 100 UNIT/ML SUBCUT SCH (08:56)
[2021-11-14] MEDS: CHOLECALCIFEROL 5,000 UNIT TABLET PO SCH (08:56)
[2021-11-14] MEDS: SOTALOL 80 MG TABLET PO SCH ×2 (08:56→21:25)
[2021-11-14] MEDS: PANTOPRAZOLE 40 MG VIAL IV SCH (08:57)
[2021-11-14] MEDS: cefTRIAXone 2,000 MG in SODIUM CHLORIDE 0.9% 100 ML IV SCH (08:57)
[2021-11-14] MEDS: SODIUM CHLORIDE 0.9% 1,000 ML IV SCH ×2 (08:57→21:35)
[2021-11-14] MEDS ORDERED: FERROUS SULFATE 325 MG TABLET PO SCH (09:00)
[2021-11-14] MEDS ORDERED: POLYETHYLENE GLYCOL POWDER 17 GM PACK PO ONE (11:57)
[2021-11-14] MEDS: DOCUSATE SODIUM 100 MG CAPSULE PO SCH ×2 (12:16→21:25)
[2021-11-15] MEDS: HYDROmorphone 1 MG/1 ML SYRINGE IV PRN (01:08)
[2021-11-15 06:32] LABS: Basophils % 0.2 % (0.0-0.8); Eosinophils % 0.5 % (0.00-10.9); Hematocrit 25.3 VOL% (35.7-47.0); Hemoglobin 7.9 GM/DL (12.0-16.0); Immature Granulocytes % 7.3 %; Immature Granulocytes Absolute 0.63 #; Lymphocytes # 1.1 10*3/uL (1.4-4.0); Lymphocytes % 12.2 % (21.3-54.2); Mean Corpuscular HGB Conc 31.2 GM/DL (32-36); Mean Corpuscular Volume 99.2 FL (87-102); Monocytes # 1.1 10*3/uL (0.11-0.8); Monocytes % 12.2 % (1.7-12.7); NRBC # 0.07 10*3/uL; Neutrophils % 67.6 % (38.7-73.9); Platelet Count 164 T/CUMM (130-400); Red Blood Count 2.55 MC/CUMM (3.8-5.5); Red Cell Distribution Width 15.8 % (9.3-17.3); White Blood Count 8.6 T/CUMM (4-12)
[2021-11-15 06:53] LABS: Albumin 1.4 G/DL (3.4-5.0); Bilirubin,Total 0.5 MG/DL (0.20-1.00); Calcium 8.9 MG/DL (8.5-10.1); Osmolality,Calculated 281.4 MOS/KG (273-304); Potassium 4.2 MMOL/L (3.5-5.1); Total Protein 6.9 G/DL (6.4-8.2)
[2021-11-15 07:02] LABS: Lymphocytes 11 % (20-55); Total Cells Counted 100
[2021-11-15 07:03] LABS: Hypochromia 1+; Microcytosis 1+; Platelet Estimate Adequate
[2021-11-15] MEDS ORDERED: MAGNESIUM SULF RIDER 2 GM/50 ML PREMIX IV ONE (07:25)
[2021-11-15] MEDS: cefTRIAXone 2,000 MG in SODIUM CHLORIDE 0.9% 100 ML IV SCH (09:52)
[2021-11-15] MEDS: INSULIN LISPRO 100 UNIT/ML SUBCUT SCH ×4 (09:57→20:44)
[2021-11-15] MEDS: INSULIN GLARGINE 100 UNIT/ML SUBCUT SCH (09:57)
[2021-11-15] MEDS: DOCUSATE SODIUM 100 MG CAPSULE PO SCH ×2 (09:58→20:43)
[2021-11-15] MEDS: PANTOPRAZOLE 40 MG VIAL IV SCH (09:58)
[2021-11-15] MEDS: FERROUS SULFATE 325 MG TABLET PO SCH (09:58)
[2021-11-15] MEDS: CHOLECALCIFEROL 5,000 UNIT TABLET PO SCH (09:58)
[2021-11-15] MEDS: SOTALOL 80 MG TABLET PO SCH ×2 (09:58→20:43)
[2021-11-15] MEDS: ASPIRIN EC 81 MG TABLET PO SCH (09:58)
[2021-11-15] MEDS: FERRIC GLUCONATE COMPLEX 125 MG in SODIUM CHLORIDE 0.9% 100 ML IV SCH (12:29)
[2021-11-15] MEDS ORDERED: HYDROmorphone 1 MG/1 ML SYRINGE IV PRN (12:42)
[2021-11-15] MEDS: SODIUM CHLORIDE 0.9% 1,000 ML IV SCH (18:07)
[2021-11-16 05:19] LABS: Basophils % 0.2 % (0.0-0.8); Eosinophils % 0.4 % (0.00-10.9); Hematocrit 23.8 VOL% (35.7-47.0); Hemoglobin 7.5 GM/DL (12.0-16.0); Immature Granulocytes % 6.3 %; Immature Granulocytes Absolute 0.59 #; Mean Corpuscular HGB Conc 31.5 GM/DL (32-36); Mean Corpuscular Volume 97.9 FL (87-102); Mean Platelet Volume 10.8 FL (9.6-12.0); Monocytes # 1.2 10*3/uL (0.11-0.8); Monocytes % 12.4 % (1.7-12.7); NRBC # 0.06 10*3/uL; Neutrophils % 69.7 % (38.7-73.9); Platelet Count 168 T/CUMM (130-400); Red Blood Count 2.43 MC/CUMM (3.8-5.5); Red Cell Distribution Width 15.4 % (9.3-17.3); White Blood Count 9.4 T/CUMM (4-12)
[2021-11-16 05:40] LABS: Calcium 8.6 MG/DL (8.5-10.1); Osmolality,Calculated 274.8 MOS/KG (273-304)
[2021-11-16 05:51] LABS: Band Neutrophils 1 % (0-10); Hypochromia 1+; Lymphocytes 16 % (20-55); Microcytosis Slight; Platelet Estimate Normal; Total Cells Counted 100
[2021-11-16] MEDS ORDERED: MAGNESIUM SULF RIDER 4 GM/100 ML PREMIX IV ONE (07:28)
[2021-11-16] MEDS: SOTALOL 80 MG TABLET PO SCH ×2 (09:29→21:46)
[2021-11-16] MEDS: cefTRIAXone 2,000 MG in SODIUM CHLORIDE 0.9% 100 ML IV SCH (09:29)
[2021-11-16] MEDS: DOCUSATE SODIUM 100 MG CAPSULE PO SCH ×2 (09:29→21:43)
[2021-11-16] MEDS: ASPIRIN EC 81 MG TABLET PO SCH (09:29)
[2021-11-16] MEDS: INSULIN GLARGINE 100 UNIT/ML SUBCUT SCH (09:30)
[2021-11-16] MEDS: INSULIN LISPRO 100 UNIT/ML SUBCUT SCH ×4 (09:30→21:44)
[2021-11-16] MEDS: CHOLECALCIFEROL 5,000 UNIT TABLET PO SCH (09:30)
[2021-11-16] MEDS: FERROUS SULFATE 325 MG TABLET PO SCH (09:30)
[2021-11-16] MEDS: PANTOPRAZOLE 40 MG VIAL IV SCH (09:31)
[2021-11-16] MEDS: POLYETHYLENE GLYCOL POWDER 17 GM PACK PO SCH (09:37)
[2021-11-16] MEDS: FERRIC GLUCONATE COMPLEX 125 MG in SODIUM CHLORIDE 0.9% 100 ML IV SCH (09:39)
[2021-11-17 04:24] LABS: Basophils % 0.1 % (0.0-0.8); Eosinophils # 0.1 10*3/uL (0.0-0.87); Eosinophils % 0.5 % (0.00-10.9); Hematocrit 24.1 VOL% (35.7-47.0); Hemoglobin 7.5 GM/DL (12.0-16.0); Immature Granulocytes % 6.1 %; Immature Granulocytes Absolute 0.57 #; Lymphocytes # 0.9 10*3/uL (1.4-4.0); Mean Corpuscular HGB Conc 31.1 GM/DL (32-36); Mean Corpuscular Volume 99.2 FL (87-102); Monocytes # 1.1 10*3/uL (0.11-0.8); Monocytes % 11.9 % (1.7-12.7); NRBC # 0.06 10*3/uL; Neutrophils % 71.4 % (38.7-73.9); Platelet Count 161 T/CUMM (130-400); Red Blood Count 2.43 MC/CUMM (3.8-5.5); Red Cell Distribution Width 15.1 % (9.3-17.3); White Blood Count 9.4 T/CUMM (4-12)
[2021-11-17 04:45] LABS: Hypochromia 1+; Lymphocytes 7 % (20-55); Microcytosis 1+; Nucleated Red Blood Cells 3 (0-5); Platelet Estimate Adequate; Total Cells Counted 100
[2021-11-17 04:49] LABS: Calcium 8.7 MG/DL (8.5-10.1); Osmolality,Calculated 274.8 MOS/KG (273-304); Potassium 3.9 MMOL/L (3.5-5.1)
[2021-11-17] MEDS ORDERED: MAGNESIUM SULF RIDER 4 GM/100 ML PREMIX IV ONE (07:27)
[2021-11-17] MEDS: POLYETHYLENE GLYCOL POWDER 17 GM PACK PO SCH (09:02)
[2021-11-17] MEDS: CHOLECALCIFEROL 5,000 UNIT TABLET PO SCH (09:04)
[2021-11-17] MEDS: ASPIRIN EC 81 MG TABLET PO SCH (09:04)
[2021-11-17] MEDS: SOTALOL 80 MG TABLET PO SCH ×2 (09:04→21:02)
[2021-11-17] MEDS: DOCUSATE SODIUM 100 MG CAPSULE PO SCH ×2 (09:05→21:01)
[2021-11-17] MEDS: FERROUS SULFATE 325 MG TABLET PO SCH (09:05)
[2021-11-17] MEDS: INSULIN LISPRO 100 UNIT/ML SUBCUT SCH ×4 (09:07→21:02)
[2021-11-17] MEDS ORDERED: LACTULOSE 20 GM/30 ML UDCUP PO ONE (09:09)
[2021-11-17] MEDS: PANTOPRAZOLE 40 MG VIAL IV SCH (09:10)
[2021-11-17] MEDS ORDERED: ALUMINUM/MAGNES/SIMETH MAX STR 30 ML UDCUP PO PRN (10:10)
[2021-11-17] MEDS: APIXABAN 5 MG TABLET PO SCH ×2 (12:30→21:01)
[2021-11-17] MEDS: INSULIN GLARGINE 100 UNIT/ML SUBCUT SCH (12:33)
[2021-11-17] MEDS: diphenhydrAMINE 2% CREAM 28 GM TUBE TOP SCH ×2 (18:05→21:07)
[2021-11-18 04:37] LABS: Basophils % 0.1 % (0.0-0.8); Eosinophils % 0.3 % (0.00-10.9); Hematocrit 24.4 VOL% (35.7-47.0); Hemoglobin 7.6 GM/DL (12.0-16.0); Immature Granulocytes % 4.8 %; Immature Granulocytes Absolute 0.46 #; Lymphocytes # 0.9 10*3/uL (1.4-4.0); Lymphocytes % 9.7 % (21.3-54.2); Mean Corpuscular HGB Conc 31.1 GM/DL (32-36); Mean Corpuscular Volume 98.8 FL (87-102); Mean Platelet Volume 10.6 FL (9.6-12.0); Monocytes # 1.1 10*3/uL (0.11-0.8); Monocytes % 11.3 % (1.7-12.7); NRBC # 0.06 10*3/uL; Neutrophils % 73.8 % (38.7-73.9); Platelet Count 163 T/CUMM (130-400); Red Blood Count 2.47 MC/CUMM (3.8-5.5); White Blood Count 9.7 T/CUMM (4-12)
[2021-11-18 04:56] LABS: Calcium 8.8 MG/DL (8.5-10.1); Osmolality,Calculated 271.1 MOS/KG (273-304); Potassium 3.9 MMOL/L (3.5-5.1)
[2021-11-18] MEDS ORDERED: MAGNESIUM SULF RIDER 4 GM/100 ML PREMIX IV ONE (07:00)
[2021-11-18] MEDS: INSULIN GLARGINE 100 UNIT/ML SUBCUT SCH (09:01)
[2021-11-18] MEDS: PANTOPRAZOLE 40 MG VIAL IV SCH (09:02)
[2021-11-18] MEDS: INSULIN LISPRO 100 UNIT/ML SUBCUT SCH ×4 (09:02→21:21)
[2021-11-18] MEDS: APIXABAN 5 MG TABLET PO SCH ×2 (09:03→21:22)
[2021-11-18] MEDS: SOTALOL 80 MG TABLET PO SCH ×2 (09:03→21:22)
[2021-11-18] MEDS: FERROUS SULFATE 325 MG TABLET PO SCH (09:03)
[2021-11-18] MEDS: POLYETHYLENE GLYCOL POWDER 17 GM PACK PO SCH (09:04)
[2021-11-18] MEDS: ASPIRIN EC 81 MG TABLET PO SCH (09:04)
[2021-11-18] MEDS: CHOLECALCIFEROL 5,000 UNIT TABLET PO SCH (09:04)
[2021-11-18] MEDS: diphenhydrAMINE 2% CREAM 28 GM TUBE TOP SCH ×2 (09:04→21:22)
[2021-11-18] MEDS: DOCUSATE SODIUM 100 MG CAPSULE PO SCH ×2 (09:04→21:21)
[2021-11-18] MEDS ORDERED: MAGNESIUM HYDROXIDE SUSP 30 ML UDCUP PO ONE (11:32)
[2021-11-19 05:11] LABS: Basophils % 0.1 % (0.0-0.8); Eosinophils # 0.1 10*3/uL (0.0-0.87); Eosinophils % 0.6 % (0.00-10.9); Hematocrit 24.4 VOL% (35.7-47.0); Hemoglobin 7.7 GM/DL (12.0-16.0); Immature Granulocytes % 3.4 %; Immature Granulocytes Absolute 0.28 #; Lymphocytes # 1.3 10*3/uL (1.4-4.0); Lymphocytes % 15.9 % (21.3-54.2); Mean Corpuscular HGB Conc 31.6 GM/DL (32-36); Mean Platelet Volume 11.3 FL (9.6-12.0); Monocytes # 1.1 10*3/uL (0.11-0.8); Monocytes % 13.5 % (1.7-12.7); NRBC # 0.03 10*3/uL; Neutrophils % 66.5 % (38.7-73.9); Platelet Count 191 T/CUMM (130-400); Red Blood Count 2.49 MC/CUMM (3.8-5.5); Red Cell Distribution Width 15.3 % (9.3-17.3); White Blood Count 8.1 T/CUMM (4-12)
[2021-11-19 05:36] LABS: Osmolality,Calculated 271.1 MOS/KG (273-304); Potassium 3.7 MMOL/L (3.5-5.1)
[2021-11-19 05:41] LABS: Band Neutrophils 1 % (0-10); Hypochromia 1+; Lymphocytes 19 % (20-55); Microcytosis 1+; Nucleated Red Blood Cells 2 (0-5); Platelet Estimate Adequate; Total Cells Counted 100
[2021-11-19] MEDS ORDERED: MAGNESIUM SULF RIDER 2 GM/50 ML PREMIX IV ONE (07:08)
[2021-11-19] MEDS ORDERED: INSULIN GLARGINE 100 UNIT/ML SUBCUT SCH (09:00)
[2021-11-19] MEDS: SOTALOL 80 MG TABLET PO SCH (10:02)
[2021-11-19] MEDS: APIXABAN 5 MG TABLET PO SCH (10:02)
[2021-11-19] MEDS: CHOLECALCIFEROL 5,000 UNIT TABLET PO SCH (10:03)
[2021-11-19] MEDS: DOCUSATE SODIUM 100 MG CAPSULE PO SCH (10:03)
[2021-11-19] MEDS: FERROUS SULFATE 325 MG TABLET PO SCH (10:03)
[2021-11-19] MEDS: ASPIRIN EC 81 MG TABLET PO SCH (10:03)
[2021-11-19] MEDS: INSULIN LISPRO 100 UNIT/ML SUBCUT SCH ×2 (10:04→12:26)
[2021-11-19] MEDS: POLYETHYLENE GLYCOL POWDER 17 GM PACK PO SCH (10:06)
[2021-11-19] MEDS: PANTOPRAZOLE 40 MG VIAL IV SCH (10:06)
[2021-11-19] MEDS: diphenhydrAMINE 2% CREAM 28 GM TUBE TOP SCH (10:44)
[2021-11-19 13:57] VITALS: BP 140/66
== END 2021-11-19 13:51 | DRG 415 ==
LOC: N.ED 19:10 → N.EDINP 19:10 → SUATTDRO 11-07 00:01 → N.5E 11-07 13:44 → SUATTDRO 11-08 07:30 → N.CC 11-09 10:13 → N.TELES 11-14 15:58
PROVIDERS: ADMIT Internal Medicine; ATTEND Emergency Medicine
PROC: LAPCHOL (2001-11-09 07:50)